=== PATIENT | female | born 2000 | race Caucasian/White ===

== ENCOUNTER 2022-09-06 15:45 | Inpatient (IN) | payer BC, SELFPAY ==
[2022-09-06 16:00] VITALS: BP 101/62; PULSE 98; RESP 18; TEMP 37; O2SAT 99
[2022-09-06 16:06] VITALS: O2SAT 98
[2022-09-06 16:17] LABS: Basophils % 0.3 %; Eosinophils # 0.1 10^3/uL (0.0-0.8); Eosinophils % 1.7 %; Hematocrit 40.2 % (37.0-47.0); Hemoglobin 13.3 g/dL (11.5-15.3); Lymphocytes # 1.7 10^3/uL (0.8-4.8); Lymphocytes % 21.7 %; Mean Corpuscular HGB Conc 33.1 g/dL (30.0-36.0); Mean Corpuscular Hemoglobin 31.9 pg (28.0-34.0); Mean Corpuscular Volume 96.4 fl (81-99); Mean Platelet Volume 10.1 fL (7.4-10.4); Monocytes # 0.6 10^3/uL (0.2-0.9); Monocytes % 7.5 %; Neutrophils # 5.22 10^3/uL (1.8-7.7); Neutrophils % 68.5 %; Nucleated Red Blood Cells % 0 %; Platelet Count 214 10^3/cmm (130-400); Red Blood Count 4.17 10^6/uL (4.1-5.3); Red Cell Distribution Width 12.5 % (12.1-15.1); White Blood Count 7.6 10^3/uL (4.0-10.0)
[2022-09-06 16:36] LABS: Alanine Aminotransferase 13 U/L (0-33); Alkaline Phosphatase 62 U/L (35-105); Blood Urea Nitrogen 10 mg/dL (6-20); Calcium 9.1 mg/dL (8.5-10.5); Carbon Dioxide 25 mmol/L (22-29); Chloride 105 mmol/L (98-107); Globulin 3.2 g/dL (1.3-4.6); Glomerular Filtration Rate 105.6 mL/min (90-130); Glucose 87 mg/dL (65-115); Osmolality Calculated 288 mOsm/kg (285-295); Sodium 140 mmol/L (136-145); Total Bilirubin 0.5 mg/dL (0.15-1.2); Total Protein 7.2 g/dL (6.6-8.7)
[2022-09-06 16:37] LABS: Acetaminophen < 5.0 ug/mL (10-30); Alcohol Level < 10 mg/dL (0-10); Salicylate < 0.3 mg/dL (3-10)
[2022-09-06 16:38] LABS: Anion Gap 14.3 (5-19); Aspartate Amino Transferase 16 U/L (0-32); Potassium 4.3 mmol/L (3.5-5.1)
--- NOTE | 2022-09-06 17:33 | PC.NURSE ---
EMS BRINGS PATIENT FROM [facility]. EMS STATES PATIENT HAS NOT TALKED TO THEM. PATIENT STATES SHE IS HOMELESS BUT NURSE CAN NOT GET ANY OTHER INFORMATION FROM PATIENT. PATIENT STATES SHE IS IN A HOSPITAL BUT CAN NOT TELL NURSE WHAT CITY.
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
[2022-09-06 18:45] VITALS: BP 95/67; PULSE 106; RESP 18; TEMP 36.4; O2SAT 99
[2022-09-06 19:38] VITALS: BP 95/67; PULSE 106; RESP 18; TEMP 36.4; O2SAT 99
[2022-09-07 06:00] VITALS: BP 91/61; PULSE 96; RESP 16; O2SAT 96
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
[2022-09-07 14:00] VITALS: RESP 16
[2022-09-07 16:52] LABS: THC Screen Urine Positive (Negative)
[2022-09-07 16:53] LABS: Amphetamines Screen Urine Positive (Negative); Barbiturates Screen Urine Negative (Negative); Benzodiazepines Screen Urine Positive (Negative); Cocaine Screen Urine Negative (Negative); Opiate Screen Urine Negative (Negative); PCP Screen Urine Negative (Negative)
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
[2022-09-07] MEDS: acetaminophen 325 mg Tablet 650 MG PO (18:26)
--- NOTE | 2022-09-07 19:44 | PC.NURSE ---
Patient refused vitals. Asked multiple times and hid under covers.
--- NOTE | 2022-09-08 06:40 | PC.NURSE ---
Patient refused. Asked multiple times turned around and put covers overhead
--- NOTE | 2022-09-08 09:20 | PC.OT ---
OT EVALUATION ATTEMPTED; PATIENT SLEEPING SOUNDLY AT THIS TIME.
[2022-09-08 09:42] LABS: HCG Qualitative Urine. Negative (Negative)
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
[2022-09-08 14:00] VITALS: BP 90/59; PULSE 110; RESP 17; TEMP 36.8; O2SAT 99
[2022-09-08] MEDS: OLANZapine 5 mg ODT PO (16:24)
--- NOTE | 2022-09-08 18:59 | P.NPUPN_ITS ---
Subjective NPU Subjective: Patient is a 21-year-old white female with schizophrenia admitted with psychotic behavior and changes in mental status. She had required as needed zyprexa after she had become aggressive and threatening asking that she be able to leave the hospital. She remained guarded on interview and reported that she was hearing things and repeatedly asked if the manual writer of this note was hearing it as well. The patient did at times appear noticeably confused and had required significant redirection on the unit. She had continued to be guarded and refused to answer questions. Information was provided stating that the patient had been on Zyprexa 10 mg and had been hospitalized in [facility]. The patient refused to answer questions regarding her feelings and stated repeatedly that she wanted to leave the unit. Mental Status Exam 2 MSE Comments: She is a emaciated white female who appeared younger than her stated age. She had poor eye contact and appeared to have significant psychomotor agitation. Her speech at times appeared slow and slurred with normal volume appreciated. She was alert and oriented to person only as she did not know the day date year or location. Her mood was not reported. Her affect was mood incongruent and irritable. She appeared to be seething. Her thought process was nonlinear and illogical. She did not report any auditory or visual hallucinations but did appear to be responding to internal stimuli. There did appear to be some paranoia with patient reporting I am not human anymore . Her attention span appeared impaired. Her recent and remote memory appeared impaired. Her insight is impaired. Her judgment is poor. Her impulse control appeared poor. Vitals/I&O/Wt Last Vital Signs Temp 98.2 F 09/08/22 14:00 Pulse 110 H 09/08/22 14:00 Resp 17 09/08/22 14:00 BP 90/59 09/08/22 14:00 Pulse Ox 99 09/08/22 14:00 O2 Del Method Room Air 09/07/22 06:00 Data NPU 09/06/22 16:11 09/06/22 16:11 A&P Assessment and plan (1) Psychotic disorder: (2) Drug intoxication: (3) Acute stress disorder: Plan This is a 21-year-old white female possibly intoxicated who appears actively psychotic currently involuntarily hospitalized who continues to require acute inpatient hospitalization as she appears markedly confused. #1. Attempt to get drug screen if possible. Patient refusing currently. #2 engage patient in individual milieu and group therapy #3. Therapeutic observation 15-minute checks on the unit. #4. Recommend sober living treatment at the highest level of care to which the patient is willing to commit. #5. Consider restarting previous medications prescribed including Zyprexa 10mg at night Involuntary Hold Information 96 Hour Hold: 96 Hour Involuntary Admission: Yes 96 Hour Hold Ending Date: 09/14/22 96 Hour Hold Ending Time: 17:50 Attestations NPU Medical Necessity Statement*: Inpatient hospitalization is medically necessary and deemed to be the clinically appropriate intervention at this time. Medications will be initiated and titrated as indicated. The patient's likely length of stay is 5 to 7 days. Coding Level of Care Code Acute Code for [facility] Diagnoses Psychotic disorder F29 Drug intoxication F19.929 Acute stress disorder F43.0
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
--- NOTE | 2022-09-08 23:22 | PC.NURSE ---
Patient refused vitals. Asked patient multiple times and patient verbally stated no.
--- NOTE | 2022-09-09 06:33 | PC.NURSE ---
Staff attempted to take vitals this morning. Patient was very hesitant and paranoid. Patricia explained in detail on how vitals were taken. Patient asked if we were going to poke her with anything. Tech reassured patient that she was not there to give her a shot or anything of the sort. Patient agreed to vitals. Once Tech went to put blood pressure cuff and patient hollered No fuck that. You cant take my vitals Patricia respected patients wishes and left her room.
--- NOTE | 2022-09-09 11:19 | PC.NURSE ---
Nurse offered a clean set of scrubs to pt, but pt declined. Visible soil on the pants of pt.
[2022-09-09] MEDS: OLANZapine 5 mg TABLET PO ×2 (12:31→22:25)
[2022-09-09 14:00] VITALS: BP 124/82; PULSE 88; RESP 16; TEMP 36.6; O2SAT 98
--- NOTE | 2022-09-09 17:47 | W.PM.NPUPNS ---
Subjective NPU Subjective: Patient is a 21-year-old white female with schizophrenia admitted with psychotic behavior and changes in mental status. Patient had made another attempt to leave as she stated repeatedly that she needed to leave although she had no plan of where she would be going. She had been verbally threatening and required as needed medications. She had repeatedly asked the information writer of this note if I was her doctor despite patient having had a conversation with her several times and introducing myself as her doctor. The patient was agreeable to starting Zyprexa at 10 milligrams/day. She continued to be extremely guarded and not forthcoming. She was unwilling to answer any questions and continued to engage in bizarre conversations as she appeared at times to be engaged in a conversation with someone that was not present. She had repeatedly stated that she was seeing something in her room and asked the information writer whether I was seeing it as well. Mental Status Exam MSE Comments: She is a emaciated white female who appeared younger than her stated age. She had intense eye contact and appeared to have significant psychomotor agitation. Her speech at times appeared slow and saccadic with limted spontaneous speech. She was alert and oriented to person only as she did not know the day date year or location. Her mood was described as good. Her affect was mood incongruent and irritable. Her thought process was nonlinear and illogical. She did not report any auditory or visual hallucinations but did appear to be responding to internal stimuli asking if there was someone in her room. There was continued evidence of paranoia. Her attention span appeared impaired. Her recent and remote memory appeared impaired. Her insight is impaired. Her judgment is poor. Her impulse control appeared poor. Vitals/I&O/Wt Last Vital Signs Temp 98.2 F 09/08/22 14:00 Pulse 110 H 09/08/22 14:00 Resp 17 09/08/22 14:00 BP 90/59 09/08/22 14:00 Pulse Ox 99 09/08/22 14:00 O2 Del Method Room Air 09/07/22 06:00 Data NPU 09/06/22 16:11 09/06/22 16:11 A&P Assessment and plan (1) Psychotic disorder: (2) Drug intoxication: (3) Acute stress disorder: Plan This is a 21-year-old white female possibly intoxicated who appears actively psychotic currently involuntarily hospitalized who continues to require acute inpatient hospitalization as she appears markedly confused. #1. Drug screen was positive for amphetamines. #2 engage patient in individual milieu and group therapy #3. Therapeutic observation 15-minute checks on the unit. #4. Recommend sober living treatment at the highest level of care to which the patient is willing to commit. #5. Zyprexa 5mg bid initiated. Involuntary Hold Information 96 Hour Hold: 96 Hour Involuntary Admission: Yes 96 Hour Hold Ending Date: 09/14/22 96 Hour Hold Ending Time: 17:50 Attestations NPU Medical Necessity Statement*: Inpatient hospitalization is medically necessary and deemed to be the clinically appropriate intervention at this time. Medications will be initiated and titrated as indicated. The patient's likely length of stay is 5 to 7 days. Coding Level of Care Code Acute Code for [facility] Diagnoses Psychotic disorder F29 Drug intoxication F19.929 Acute stress disorder F43.0
[2022-09-10 06:00] VITALS: BP 86/59; PULSE 98; RESP 17; O2SAT 97
[2022-09-10] MEDS: OLANZapine 5 mg TABLET PO (09:31)
[2022-09-10] MEDS: haloperidol inj 5 mg/mL INJ 1 mL IM (12:25)
[2022-09-10] MEDS: diphenhydrAMINE 50 mg/mL SDV 1mL IM (12:25)
[2022-09-10] MEDS: LORazepam 2 mg/mL INJ 1 mL IM (12:25)
--- NOTE | 2022-09-10 12:41 | PC.NURSE ---
Administered a B52 to pt who put hands on staff.
[2022-09-10 14:00] VITALS: RESP 16
--- NOTE | 2022-09-10 14:57 | PC.NURSE ---
1230 Pt was pushing on the exit doors, wanting to get out. Pt has done this several times today.
--- NOTE | 2022-09-10 16:08 | P.NPUPN_ITS ---
Subjective NPU Subjective: Patient is a 21-year-old white female with schizophrenia admitted with psychotic behavior and changes in mental status. She continued to show absence of appropriate self-care as staff had to show the patient how to use soap to shower. She appeared grossly confused. She had been aggressive and verbally abusive today while requiring as needed Haldol and seclusion. She reported that she wanted to go home. She was unwilling to discuss any details regarding her hospitalization. She did state that she would take medications. She had not provided any significant information regarding her recent living situation outside of the hospital. Mental Status Exam MSE Comments: She is a emaciated white female who appeared younger than her stated age. She did respond to her name but appeared to perseverate while repeatedly asking to leave here. She was not alert to year or month at this time. Her gait was within within normal limits. Her hygiene was poor. There was no evidence of any abnormal tics or tremors although she did appear to have some odd posturing at this time. Her attention span was impaired. Her mood was described as fine. Her affect was odd and subdued. It was mood incongruent. Her thought process appeared nonlinear and disorganized. She denied any homicidal or suicidal ideation there was evidence of active paranoid process and she did appear to be responding internal stimuli. Her insight is impaired her judgment is poor. Her impulse control appeared impaired as well. Vitals/I&O/Wt Last Vital Signs Temp 97.8 F 09/09/22 14:00 Pulse 98 09/10/22 06:00 Resp 17 09/10/22 06:00 BP 86/59 09/10/22 06:00 Pulse Ox 97 09/10/22 06:00 O2 Del Method Room Air 09/10/22 06:00 Data NPU 09/06/22 16:11 09/06/22 16:11 A&P Assessment and plan (1) Psychotic disorder: (2) Drug intoxication: (3) Acute stress disorder: Plan This is a 21-year-old white female possibly intoxicated who appears actively psychotic currently involuntarily hospitalized who continues to require acute inpatient hospitalization as she appears markedly confused. #1. Drug screen was positive for amphetamines. #2 engage patient in individual milieu and group therapy #3. Therapeutic observation 15-minute checks on the unit. #4. Recommend sober living treatment at the highest level of care to which the patient is willing to commit. #5. Continue zyprexa 5mg bid, haldol prn agitation. Continued stay required nj th paperwork filed for 21 day hold. Involuntary Hold Information 96 Hour Hold: 96 Hour Involuntary Admission: Yes 96 Hour Hold Ending Date: 09/14/22 96 Hour Hold Ending Time: 17:50 Attestations NPU Medical Necessity Statement*: Inpatient hospitalization is medically necessary and deemed to be the clinically appropriate intervention at this time. Medications will be initiated and titrated as indicated. The patient's likely length of stay is 5 to 7 days. Coding Level of Care Code Acute Code for [facility] Fwd Diagnoses Psychotic disorder F29 Drug intoxication F19.929 Acute stress disorder F43.0
[2022-09-10 22:00] VITALS: BP 160/56; PULSE 97; RESP 16; TEMP 36.4; O2SAT 97
--- NOTE | 2022-09-10 22:54 | PC.NURSE ---
PT CONTINUES TO SLEEP. DOES AROUSE TO VOICE AND THEN WILL PUSH RN AWAY AND GO RIGHT BACK TO SLEEP. RN ATTEMPTED TO WAKE PT UP SEVERAL TIMES WITH NO SUCCESS. PT WAS ENCOURAGED TO GET UP AND TAKE ZYPREXA 2100 DOSE BUT PT CONTINUES TO PUSH RN AWAY AND STATES GO AWAY LET ME SLEEP. IT WAS REPORTED AT SHIFT CHANGE THAT PT TOOK ZYPEXA THIS AM AND ALSO HAD ATIVAN, HALDOL AND BENADRYL IM ABOUT NOON DUE TO SEVERE AGITATION AND BEING PHYSICAL WITH STAFF. DR. JAQUEZ WAS NOTIFIED OF PT MEDICATION REFUSAL AT 0483, NO NEW ORDERS RECEIVED.
[2022-09-11 06:00] VITALS: BP 97/64; PULSE 97; RESP 22; TEMP 36.7; O2SAT 95
[2022-09-11] MEDS: OLANZapine 5 mg TABLET PO (08:59)
[2022-09-11 14:00] VITALS: BP 139/73; PULSE 93; RESP 16; TEMP 36.6; O2SAT 97
--- NOTE | 2022-09-11 18:01 | P.NPUPN_ITS ---
Subjective NPU Subjective: Patient is a 21-year-old white female with schizophrenia admitted with psychotic behavior and changes in mental status. The patient did not have any episodes of aggression this morning. She had continued to make attempts to leave the unit. She was eating better and remained isolative on the mileu. She continued to pace the hallways and had limited productive speech. She had reported that she did not live with anyone and had been able to care for herself. She had refused her zyprexa medication stating that she was not taking medication and had been homeless Mental Status Exam MSE Comments: She is a emaciated white female who appeared younger than her stated age. 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 Her gait was within within normal limits. Her hygiene was poor. There was no evidence of any abnormal tics or tremors although she did appear to have some odd posturing at this time. Her attention span was impaired. Her mood was described as okay. Her affect was odd and subdued. It was mood incongruent. Her thought process was linear but superficial with limited elaboration. She denied any homicidal or suicidal ideation. there was evidence of active paranoid process and she did appear to be responding internal stimuli. Her insight is impaired. her judgment is poor. Her impulse control appeared impaired as well. Vitals/I&O/Wt Last Vital Signs Temp 97.8 F 09/11/22 14:00 Pulse 93 09/11/22 14:00 Resp 16 09/11/22 14:00 BP 139/73 09/11/22 14:00 Pulse Ox 97 09/11/22 14:00 O2 Del Method Room Air 09/11/22 06:00 Data NPU 09/06/22 16:11 09/06/22 16:11 A&P Assessment and plan (1) Psychotic disorder: (2) Drug intoxication: (3) Acute stress disorder: Plan This is a 21-year-old white female possibly intoxicated who appears actively psychotic currently involuntarily hospitalized who continues to require acute inpatient hospitalization as she appears markedly confused. #1. Drug screen was positive for amphetamines. #2 engage patient in individual milieu and group therapy #3. Therapeutic observation 15-minute checks on the unit. #4. Recommend sober living treatment at the highest level of care to which the patient is willing to commit. #5. Continued stay required with paperwork filed for 21 day hold. Involuntary Hold Information 96 Hour Hold: 96 Hour Involuntary Admission: Yes 96 Hour Hold Ending Date: 09/14/22 96 Hour Hold Ending Time: 17:50 Attestations NPU Medical Necessity Statement*: Inpatient hospitalization is medically necessary and deemed to be the clinically appropriate intervention at this time. Medications will be initiated and titrated as indicated. The patient's likely length of stay is 5 to 7 days. Coding Level of Care Code Acute Code for [facility] Diagnoses Psychotic disorder F29 Drug intoxication F19.929 Acute stress disorder F43.0
[2022-09-11] MEDS: OLANZapine 10 mg TABLET PO (20:35)
[2022-09-12] MEDS: haloperidol 5 mg Tablet PO (13:08)
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
[2022-09-12 14:00] VITALS: BP 98/66; PULSE 81; RESP 16; TEMP 36.6; O2SAT 98
--- NOTE | 2022-09-12 14:00 | PC.NURSE ---
Patient ramming her back into the south-side door. Patient stated that she doesn't want to be here anymore. Patient stating that we are bullying her. Patient used both hands to pull on the glass surrounding the nurses station. A glass cracking sound was audible. Security called during this time. Per Dr. Clements's order, patient given IM injection of Haldol. Patient stated to Pooja, if I do what the doctor says, then I can leave? Patient is having swings in mood, from calm to agitated.
[2022-09-12] MEDS: haloperidol inj 5 mg/mL INJ 1 mL IM (14:01)
--- NOTE | 2022-09-12 15:20 | W.PM.NPUPNS ---
Subjective NPU Subjective: Patient is a 21-year-old white female with schizophrenia admitted with psychotic behavior and changes in mental status. The patient had become agitated after she had repeatedly asked to leave the hospital. She had no clear answer on where she would go or how she would get there but continued to state that she wished to leave. She had stated that she believed that God would help her. She had continued to struggle with trusting anyone on staff and reported that she needed to find a place to live. She had demanded that she be placed somewhere and if she could not go somewhere to live that she would just need to leave. She had continued to minimize much of the reasons that she had initially asked for help. She had been able to sleep without any difficulty per staff. She had given been given Haldol 5 mg as needed for agitation 2 times this afternoon. Mental Status Exam MSE Comments: She is a thin white female who appeared younger than her stated age. Patient continued to state that the year was 2002. Her gait was slow and steady. Her hygiene was improving. There was no evidence of any abnormal tics or tremors although she did appear to have some odd posturing at this time. Her attention span was impaired. Her mood was described as okay. Her affect was subdued and mood incongruent. Her thought process was linear but superficial with limited elaboration. She denied any homicidal or suicidal ideation. There was evidence of active paranoid process and she did appear to be responding internal stimuli. Her insight is impaired. Her judgment is poor. Her impulse control appeared impaired as well. Vitals/I&O/Wt Last Vital Signs Temp 97.8 F 09/11/22 14:00 Pulse 93 09/11/22 14:00 Resp 16 09/11/22 14:00 BP 139/73 09/11/22 14:00 Pulse Ox 97 09/11/22 14:00 O2 Del Method Room Air 09/11/22 06:00 Data NPU 09/06/22 16:11 09/06/22 16:11 A&P Assessment and plan (1) Psychotic disorder: (2) Drug intoxication: (3) Acute stress disorder: Plan This is a 21-year-old white female possibly intoxicated who appears actively psychotic currently involuntarily hospitalized who continues to require acute inpatient hospitalization as she appears markedly confused. #1. Haldol Prn for agitation. #2 engage patient in individual milieu and group therapy #3. Therapeutic observation 15-minute checks on the unit. #4. Recommend sober living treatment at the highest level of care to which the patient is willing to commit. #5. Continued stay required with paperwork filed for 21 day hold. Involuntary Hold Information 96 Hour Hold: 96 Hour Involuntary Admission: Yes 96 Hour Hold Ending Date: 09/14/22 96 Hour Hold Ending Time: 17:50 Attestations NPU Medical Necessity Statement*: Inpatient hospitalization is medically necessary and deemed to be the clinically appropriate intervention at this time. Medications will be initiated and titrated as indicated. The patient's likely length of stay is 5 to 7 days. Coding Level of Care Code Acute Code for [facility] Diagnoses Psychotic disorder F29 Drug intoxication F19.929 Acute stress disorder F43.0
[2022-09-12] MEDS: benztropine 1 mg Tablet PO ×2 (17:21→17:33)
[2022-09-12 17:26] LABS: Glucose Point of Care 98 mg/dL (70-110)
[2022-09-12 17:27] VITALS: BP 110/60; PULSE 103; RESP 16; TEMP 36.4; O2SAT 98
[2022-09-12] MEDS: LORazepam 2 mg Tablet PO (17:31)
--- NOTE | 2022-09-12 17:31 | PC.NURSE ---
administered ativan 2mg po and cogentin 2mg po per dr lima as patient was starting to have eps, with stiffening of muscles and joints
--- NOTE | 2022-09-12 19:41 | PC.NURSE ---
Asked patient multiple times to obtain vitals. Patient then rolled towards the other direction stating they wanted to go back to sleep. Respiration Rate 16.
[2022-09-12] MEDS: OLANZapine 10 mg TABLET PO (20:05)
--- NOTE | 2022-09-13 08:06 | PC.NURSE ---
Previous shift informed nursing staff that patient refused 0600 vitals.
--- NOTE | 2022-09-13 09:51 | PC.NURSE ---
Patient served 21 day paperwork at approximately 0940. Patient took this well. Patient stated to [facility] that she would fill it out later, and returned to bed. Patient was informed that she didn't need to fill it out, but that she is welcome to read it.
--- NOTE | 2022-09-13 11:23 | PC.NURSE ---
Patient refusing physical assessment. She did deny avh and si/hi. However, when asked when her last bm was she stated, I was here yesterday. This RN let her know that I needed to know the last time she pooped and she became irritated, yelling, I was here yesterday! Patient was lying in her bed during assessment and would not uncover herself, including her head.
[2022-09-13 14:00] VITALS: BP 121/76; PULSE 111; RESP 17; TEMP 36.5; O2SAT 99
--- NOTE | 2022-09-13 16:34 | PC.NURSE ---
Patient asked nursing staff if when she went to her [address] tomorrow if they would sentence her to [facility]. Staff assured her she would be coming back to the unit. Patient stated, I know this would be a better place for me. I know you guys just wanna help me. She calmly asked for neosporin for the healing blister on her left heel. This RN got her ointment and placed it on her neosporin which satisfied the patient. Patient then said, I know everything happens for a reason. Are you seeing me how I see me? Am I real? This RN told the patient she was real and reoriented her to reality. Patient now watching tv in dayroom.
[2022-09-13] MEDS: neomycin-poly-bacitracin oint 28 gm 1 APPLIC TOPICAL (16:36)
--- NOTE | 2022-09-13 16:55 | W.PM.NPUPNS ---
Subjective NPU Subjective: Patient is a 21-year-old white female with schizophrenia admitted with psychotic behavior and changes in mental status. Patient had continued to appear confused at times thinking that it was 2002. She had expressed desire to leave. She was informed that she would be evaluated and would be needing to attend a hearing as she had been involuntarily placed here. She had continued to appear confused and struggled with answering questions. She had acknowledged having been homeless and continued to report that she simply needed to go home although she did not show evidence of a clear plan of where or how she would find fdc or provide income to sustain herself. She reported having no one to help her and she ignored questions that I asked if she had any form of support. Mental Status Exam MSE Comments: She is a thin white female who appeared younger than her stated age. Patient continued to state that the year was 2002. Her gait was slow and steady. Her hygiene was improving. There was no evidence of any abnormal tics or tremors although she did appear to have some odd posturing at this time. Her attention span was impaired. Her mood was described as good.. Her affect was subdued and mood incongruent. Her thought process was linear but superficial with limited elaboration. She denied any homicidal or suicidal ideation. There was evidence of active paranoid process and she did appear to be responding internal stimuli. Her insight is impaired. Her judgment is poor. Her impulse control appeared impaired as well. Vitals/I&O/Wt Last Vital Signs Temp 97.7 F 09/13/22 14:00 Pulse 111 H 09/13/22 14:00 Resp 17 09/13/22 14:00 BP 121/76 09/13/22 14:00 Pulse Ox 99 09/13/22 14:00 O2 Del Method Room Air 09/12/22 14:00 Data NPU 09/06/22 16:11 09/06/22 16:11 A&P Assessment and plan (1) Psychotic disorder: (2) Drug intoxication: (3) Acute stress disorder: Plan This is a 21-year-old white female possibly intoxicated who appears actively psychotic currently involuntarily hospitalized who continues to require acute inpatient hospitalization as she appears markedly confused. #1. Haldol Prn for agitation.zyprexa 10mg at night to target psychosis. #2 engage patient in individual milieu and group therapy #3. Therapeutic observation 15-minute checks on the unit. #4. Recommend sober living treatment at the highest level of care to which the patient is willing to commit. #5. Continued stay required with paperwork filed for 21 day hold and hearing tommorow. Involuntary Hold Information 96 Hour Hold: 96 Hour Involuntary Admission: Yes 96 Hour Hold Ending Date: 09/14/22 96 Hour Hold Ending Time: 17:50 Attestations NPU Medical Necessity Statement*: Inpatient hospitalization is medically necessary and deemed to be the clinically appropriate intervention at this time. Medications will be initiated and titrated as indicated. The patient's likely length of stay is 5 to 7 days. Coding Level of Care Code Acute Code for [facility] Fwd Diagnoses Psychotic disorder F29 Drug intoxication F19.929 Acute stress disorder F43.0
[2022-09-13] MEDS: nicotine 2 mg Gum BUCCAL (19:30)
[2022-09-13 19:54] VITALS: BP 92/65; PULSE 98; RESP 18; O2SAT 92
[2022-09-13] MEDS: OLANZapine 10 mg TABLET PO (20:17)
--- NOTE | 2022-09-14 06:47 | PC.NURSE ---
Asked patient to obtain vital signs. Pt rolled over and stating I'm going back to sleep Respiration Rate 16.
[2022-09-14] MEDS: nicotine 2 mg Gum BUCCAL ×2 (09:12→10:53)
--- NOTE | 2022-09-14 10:54 | PC.NURSE ---
Pt is currently off the unit escorted by auto [employer] driver to court house.
--- NOTE | 2022-09-14 11:49 | PC.NURSE ---
Pt is back on the unit from court.
--- NOTE | 2022-09-14 11:49 | PC.NURSE ---
Pt is highly agitated and using profanity when speaking, slamming doors and demanding to leave. Pacing like a caged animal around the nurses station, yelling and screaming. Pt also pushing on the exit doors several times. Pt was encouraged by nursing staff to remain calm.
[2022-09-14] MEDS: diphenhydrAMINE 50 mg/mL SDV 1mL IM (13:49)
[2022-09-14] MEDS: haloperidol inj 5 mg/mL INJ 1 mL IM (13:49)
[2022-09-14] MEDS: LORazepam 2 mg/mL INJ 1 mL IM (13:49)
[2022-09-14 14:00] VITALS: BP 107/68; PULSE 120; RESP 17; TEMP 36.6; O2SAT 100
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
[2022-09-14 20:23] VITALS: BP 96/58; PULSE 98; RESP 15; TEMP 36.7; O2SAT 98
[2022-09-14] MEDS: OLANZapine 10 mg TABLET PO (21:01)
--- NOTE | 2022-09-15 06:46 | PC.NURSE ---
Asked patient to obtain vital signs. pt stated No while rolling over.
[2022-09-15] MEDS: nicotine 2 mg Gum BUCCAL ×3 (11:45→15:58)
[2022-09-15 14:00] VITALS: BP 102/57; PULSE 102; RESP 17; TEMP 36.7; O2SAT 96
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
[2022-09-15] MEDS: hyDROXYzine 25 mg Capsule 50 MG PO (18:25)
[2022-09-15] MEDS: OLANZapine 10 mg TABLET PO (19:59)
[2022-09-15 21:18] VITALS: BP 97/62; PULSE 93; RESP 16; O2SAT 95
[2022-09-16 06:00] VITALS: PULSE 93; RESP 16; O2SAT 98
[2022-09-16] MEDS: nicotine 2 mg Gum BUCCAL ×2 (09:09→12:49)
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
[2022-09-16 12:46] VITALS: PULSE 93; RESP 16; O2SAT 98
== END 2022-09-16 13:40 | disposition home or self-care (01) | DRG 885 ==
LOC: ER 17:54 → NP 18:13
PROVIDERS: Admitting Provider Psychiatry & Neurology Psychiatry; Emergency Provider Emergency Medicine; Visit Provider Psychiatry & Neurology Psychiatry
DX: F20.9 Schizophrenia, unspecified (principal); F15.20 Other stimulant dependence, uncomplicated; F84.5 Asperger's syndrome; Z59.00 Homelessness unspecified; F63.9 Impulse disorder, unspecified; F43.0 Acute stress reaction
CPT/HCPCS: 36415; 36416; 80053; 80306; 80307; 81025; 82962; 85025; 96372; 97150; 97165; 99238; 99285; J1200; J1630; J2060

== ENCOUNTER 2022-11-02 18:57 | Emergency (ER) | payer BC, MEDICAID, SELFPAY ==
--- NOTE | 2022-11-02 19:36 | W.ED.GENADLT ---
HPI - General Adult General: Chief complaint: General Medical Stated complaint: Anxiety Time Seen by Provider: 11/02/22 19:07 Source: patient Mode of arrival: ambulatory Limitations: no limitations History of Present Illness: 22-year-old female states that she is homeless and wants to be transferred to [place]. She states she has nowhere to stay here and believes she is can get into residential at [place]. States she also has not had a menstruation in 7 months but states she has had irregular menstruation in the past. She denies any suicidal or homicidal ideations. Associated symptoms: Deny chest pain, dyspnea, headache(s), nausea, rash or vomiting Review of Systems Const: Denies: fever(s), chills, body aches or change in appetite ENMT: Denies: throat pain or dental pain Card: Denies: chest pain Resp: Denies: dyspnea GI: Denies: abdominal pain, nausea, vomiting or diarrhea Musc: Denies: neck pain or back pain Skin/Breast: Denies: rash Neuro: Denies: headache(s) Psych: Denies: depression Physical Exam Const: COMMON NORMALS: no acute distress, patient oriented x3 and healthy appearing HENMT: COMMON NORMALS: normocephalic and atraumatic HEAD & SCALP: normocephalic and atraumatic Eye: COMMON NORMALS: EOMs intact bilaterally Neck/C-Spine: COMMON NORMALS: full ROM and supple Chest: COMMONS NORMALS: normal inspection of the chest Resp: COMMON NORMALS: normal respiratory effort Cardio: COMMON NORMALS: regular rate, regular rhythm and No murmurs present (Cardio) RATE: regular rate RHYTHM: regular rhythm GI: INSPECTION: Yes normal to inspection Extremity: COMMON NORMALS: normal to inspection and full ROM Neuro: COMMON NORMALS: patient oriented x3, moves all extremities and no focal motor deficits Psych: COMMON NORMALS: mental status grossly normal, Normal thought process present and cooperative THOUGHT PROCESS: Normal thought process present Skin: COMMON NORMALS: no rashes or lesions noted and no wounds GENERAL SKIN EXAM: no rashes or lesions noted MDM - General Adult Medical Decision Making Patient presents here with homelessness she was requesting transfer to [place] she went to go there to homeless residential. I informed her we can transfer her there just for that she is not suicidal or homicidal she did complain of some irregular periods her here is negative she is stable for discharge. Lab Data Laboratory Results HCG, Qual Negative (Negative) 11/02/22 19:55 Discharge Plan Discharge Patient Disposition: Home Clinical Impression: Homeless, Irregular periods Condition: Stable Prescriptions: No Action nicotine (polacrilex) 2 mg Gum 2 mg buccal Q2H PRN (Reason: Nicotine Withdrawal) 30 Days Qty: 240 1RF olanzapine 10 mg Tablet 10 mg PO BEDTIME 30 Days Qty: 30 1RF hydroxyzine pamoate 25 mg Capsule 50 mg PO Q6H PRN (Reason: Anxiety) 30 Days Qty: 120 1RF Discharge Orders: Discharge ED (Routine); Ordered 11/02/22 Ordered By: Deena Alejo Discharge Diet: Advance as tolerated Discharge Activity: Resume usual activity Coding Level of Care Code ED Computer Aided Design Operator for Deidre Giang
[2022-11-02 20:04] LABS: HCG Qualitative Urine. Negative (Negative)
== END 2022-11-02 20:45 | disposition home or self-care (01) ==
PROVIDERS: Emergency Provider Emergency Medicine
DX: N92.6 Irregular menstruation, unspecified (principal); Z59.00 Homelessness unspecified
CPT/HCPCS: 81025; 99283